=== PATIENT | male | born 1990 | race Caucasian/White ===

== ENCOUNTER 2021-05-03 10:19 | Emergency (ER) | payer MEDICAID ==
[2021-05-03] MEDS ORDERED: Ketorolac 60 MG/2 ML SDV IM ONE (11:12)
--- NOTE | 2021-05-03 11:12 | EDM.PDOC ---
ED HPI GENERAL MEDICAL PROBLEM - General Chief Complaint: Genitourinary Problem Stated Complaint: PAIN IN TESTICLES Time Seen by Provider: 05/03/21 10:47 - History of Present Illness INITIAL COMMENTS - FREE TEXT/NARRATIVE: This patient presents to the emergency department for evaluation of left testicular pain. He states the pain started last night after intercourse and has intensified during the night. He did use ibuprofen for it which did not seem to be very helpful. He states the pen pain is almost always present but does get a little better sometimes until he moves and then it gets worse again. He denies any injuries or concerns, or other symptoms. Left Pain Score (Numeric/FACES): 8 - Related Data Allergies Allergy/AdvReac Type Severity Reaction Status Date / Time Penicillins Allergy Other Verified 05/03/21 10:43 Home Meds: Home Meds FLUoxetine HCl [Fluoxetine] 10 mg PO DAILY 05/03/21 [History] amLODIPine [Norvasc] 5 mg PO DAILY 05/03/21 [History] ED ROS GENERAL - Review of Systems Review Of Systems: Comprehensive ROS is negative, except as noted in HPI. ED EXAM, RENAL/ - Physical Exam Exam: See Below Exam Limited By: No Limitations General Appearance: Alert, WD/WN, No Apparent Distress Ears: Normal External Exam Nose: Normal Inspection Head: Atraumatic, Normocephalic Neck: Normal Inspection, Full Range of Motion Respiratory/Chest: No Respiratory Distress, Lungs Clear, Normal Breath Sounds, No Accessory Muscle Use Cardiovascular: Regular Rate, Rhythm Back Exam: Normal Inspection Extremities: Normal Inspection Course - Vital Signs Last Recorded V/S: Last Vital Signs Temp 36.6 C 05/03/21 10:47 Pulse 102 H 05/03/21 10:47 Resp 18 05/03/21 10:47 BP 156/96 H 05/03/21 10:47 Pulse Ox 96 05/03/21 10:47 - Re-Assessments/Exams Free Text/Narrative Re-Assessment/Exam: 05/03/21 11:10 This patient presents to the emergency department for evaluation of left testicular pain. I am quite concerned he may have a testicular torsion and we do not have ultrasound available here in this facility today. I contacted Dr. Oh in the emergency department at [facility] He indicated to me they did have ultrasound available and he was willing to accept this patient in transfer. The patient will be given Toradol and Zofran and discharged from our facility. He is working on finding someone to drive him to their facility but will go by private vehicle 1 where the other. The patient was stable at the time of discharge. Departure - Departure Time of Disposition: 11:15 Disposition: Admitted As Inpatient 64 Condition: Good Clinical Impression: Testicular pain, left - Discharge Information *PRESCRIPTION DRUG MONITORING PROGRAM REVIEWED*: No *COPY OF PRESCRIPTION DRUG MONITORING REPORT IN PATIENT VIKY: No Referrals: PCP,None [Primary Care Provider] - Sepsis Event Note (ED) - Evaluation Sepsis Screening Result: No Definite Risk - Focused Exam Vital Signs: Vital Signs Temp Pulse Resp BP Pulse Ox 05/03/21 10:47 36.6 C 102 H 18 156/96 H 96
[2021-05-03] MEDS ORDERED: Ondansetron 4 MG Tab.DIS PO ONE (11:13)
[2021-05-03] MEDS ORDERED: Ondansetron 4 MG Tab.DIS ONE (11:18)
[2021-05-03] MEDS ORDERED: Ketorolac 60 MG/2 ML SDV ONE (11:18)
== END 2021-05-03 11:30 | disposition home or self-care (01) ==
LOC: LB.ED 10:19
DX: N50.812 Left testicular pain (principal); Z88.0 Allergy status to penicillin
CPT/HCPCS: 96372; 99283; A9270; J1885